=== PATIENT | male | born 1995 | race African-American/Black ===

== ENCOUNTER 2016-12-05 00:19 | Emergency (ER) | payer OTHER ==
[~2016-12-05] VITALS: Ht 182.9 cm; Wt 62.6 kg
[2016-12-05] MEDS ORDERED: ULTRAM50 MG PO (01:28)
[2016-12-05 02:37] VITALS: BP 135/77
== END 2016-12-05 02:39 | disposition home or self-care (01) ==
LOC: EXP 00:19 → EME 00:19 → EXP 02:39
PROC: 2W3EX1Z Immobilization of Right Hand using Splint (ICD-10-PCS; principal; 2016-12-05)
DX: S62.316A Displaced fracture of base of fifth metacarpal bone, right hand, initial encounter for closed fracture (principal); W18.30XA Fall on same level, unspecified, initial encounter; F17.200 Nicotine dependence, unspecified, uncomplicated
CPT/HCPCS: 73130; 99281; 99284

== ENCOUNTER 2017-03-14 14:48 | Emergency (ER) | payer OTHER ==
[~2017-03-14] VITALS: Ht 180.3 cm; Wt 64.6 kg
[~2017-03-14 14:48] MED LIST: ULTRAM50 MG PO
[2017-03-14 16:09] VITALS: BP 139/81
== END 2017-03-14 16:10 | disposition home or self-care (01) ==
LOC: EME 14:48 → RME 14:48
DX: S69.91XA Unspecified injury of right wrist, hand and finger(s), initial encounter (principal); W21.05XA Struck by basketball, initial encounter; Y93.67 Activity, basketball; F17.200 Nicotine dependence, unspecified, uncomplicated
CPT/HCPCS: 73110; 99281; 99283